=== PATIENT | male | born 1995 | race Caucasian/White ===

== ENCOUNTER 2024-09-20 09:04 | Emergency (ER) | payer BC, SELFPAY ==
[2024-09-20 09:10] VITALS: BP 154/83
[2024-09-20 09:21] VITALS: BMI 29.3
[2024-09-20 09:22] VITALS: BP 157/100
--- NOTE | 2024-09-20 09:36 | ED.GENMED ---
History of Present Illness
General
Chief Complaint: Chest Problem
Source: patient
Exam Limitations: none
Time Seen by Provider: 09/20/24 09:35
Nursing documentation reviewed up to this point in time: agreed with
History of Present Illness
History of Present Illness:
28-year-old male presents to the emergency department due to left shoulder and left chest pain. He woke up with this on Wednesday. He took gabapentin from his brother, which did help. He denies any shortness of breath or fever.
Past History
Past History
ED Past Medical History: None
ED Past Surgical History: Other (Lesion removed from head)
Social History
Tobacco: Non-smoker
Alcohol: None
Drug: None
Living: with family
Employment: Employed
Review of Systems
Review of Systems
Allergies reviewed?: Yes
All Other Systems: Not applicable
Constitutional: Reports no symptoms
EENT: Reports no symptoms
Respiratory: Reports no symptoms
Cardiac: Reports chest pain
ABD/GI: Reports no symptoms
: Reports no symptoms
Musculoskeletal: Reports muscle pain
Skin: Reports no symptoms
Neurological: Reports no symptoms
Endocrine: Reports no symptoms
Hematologic/Lymphatic: Reports no symptoms
Psychiatric: Reports no symptoms
Phy Exam
Physical Exam
Physical Exam:
Physical Exam
General: no apparent distress, not acutely ill
Neck: supple. no meningeal signs. normal posterior pharynx
Heart: s1/s2 regular rate and rhythm, no murmur. equal radial
pulses.
HEENT: Pupils equal round reactive to light, EOMI
Lungs: no acute respiratory distress. clear bilaterally, Left-sided chest wall tenderness, left upper chest
Abdomen: normal bowel sounds. not tender. no CVAT
Neuro: alert and oriented. no focal neurological deficits cranial nerves II through XII intact
Skin: no rash
Psychiatric: well kept. interactive and cooperative
Extremities: no edema. no calf tenderness. negative homans. good distal pulses
Course
Orders/Labs/Results
Orders:
Orders
09/20/24 09:12
Electrocardiogram (*1) Urgent
Reason for Study: Chest Pain
EKG- Treatment ONCE
09/20/24 09:54
Shoulder, Left 2 View CR [CR Shoulder - Left Min 2 View*] Urgent
Comment:
Reason For Exam: left shoulder pain with range of motion
Vital Signs
Initial and Last Documented VS:
Initial Vital Signs
Temp Pulse Resp BP Pulse Ox
98.3 F 60 16 154/83 98
09/20/24 09:10 09/20/24 09:10 09/20/24 09:10 09/20/24 09:10 09/20/24 09:10
Last Documented Vital Signs
Temp Pulse Resp BP Pulse Ox
98.3 F 51 20 141/78 97
09/20/24 09:10 09/20/24 12:20 09/20/24 12:20 09/20/24 12:18 09/20/24 12:18
MDM/Problems Addressed
Differential Diagnosis Includes:
ACS, pneumonia, shoulder fracture, rotator cuff tear
MDM/Problems Addressed:
28-year-old male with left shoulder strain, do not suspect ACS, PE, fracture or rotator cuff tear. Stable for discharge.
*Radiology
Radiology exam reviewed: radiology read reviewed (Left shoulder x-ray no acute findings, Except sclerotic bony island)
*Pulse Oximetry
SaO2: 98
Oxygen Mode of Delivery: Room air
Patient hypoxic: no
*EKG
Interpreted by ED Provider?: Yes
EKG Intrepretation Date: 09/20/24
EKG Intrepretation Time: 09:13
Interpretation: abnormal
Comparison EKG: no comparison EKG present
Heart Rate: 58
Rate: bradycardiac
Rhythm: sinus
[place]: normal axis
Interval: normal interval
QRS Pattern: normal QRS
Ischemia: no ischemia
*Senior Quality Control Inspector Interpretation
Rate: Senior Quality Control Inspector- N/A
*Critical Care Note
Total Time (30-74mins, 75-104mins- exclusive of procedures): Not Applicable
Data Reviewed
Further Testing Considered But Not Given:
CT chest not indicated
Patient Management
Discussion with other providers: [employer] (d/w orthopedics )
ED Attending Note
-
Portions of this chart may have been created with voice recognition software.� Occasional wrong word or��sound alike� substitutions may have occurred due to the inherent limitations of voice recognition software.
Discharge Plan
Departure
Patient Disposition: Home (Routine Discharge)
Date of Disposition: 09/20/24
Time of Disposition: 12:30
Patient with high blood pressure during this ER visit?: Yes
Condition: Good
Discharge Problem:
Left shoulder strain
Instructions: Shoulder pain - ED discharge instructions
Prescriptions:
New
gabapentin 100 mg capsule
100 mg PO TID PRN (Reason: pain) Qty: 20 0RF
Referrals:
shoulder [Other]
NONE,* [Family Provider, Internal Medicine]
Yamil Glaser MD [Active, Orthopedics] - Call in 1-3 days for appt
Interventions
Interventions:
*Risk Screen - Suicide Last Done: 09/20/24 09:10
*General Assessment Last Done: 09/20/24 09:23
*Neglect/Abuse Screening Last Done: 09/20/24 09:10
*ED- Fall Risk Assessment Last Done: 09/20/24 09:22
*ED COVID-19 Vaccine History Last Done: 09/20/24 09:22
*Nursing Disposition Last Done: 09/20/24 12:53
ED- Cardiac Assessment Last Done: 09/20/24 09:24
ED- Pulmonary Assessment Last Done: 09/20/24 09:28
Discharge Date and Time
Discharge Date/Time: 09/20/24 12:54
Print Language: LEBANESE
[2024-09-20 10:00] VITALS: BP 141/99
[2024-09-20 12:18] VITALS: BP 141/78
== END 2024-09-20 12:54 | disposition home or self-care (01) ==
LOC: EMR 09:04
PROVIDERS: EMERGENCY PHYSICIAN Emergency Medicine
DX: S46.912A Strain of unspecified muscle, fascia and tendon at shoulder and upper arm level, left arm, initial encounter (principal); R07.89 Other chest pain; M54.2 Cervicalgia; M79.10 Myalgia, unspecified site; M54.9 Dorsalgia, unspecified; X58.XXXA Exposure to other specified factors, initial encounter; R03.0 Elevated blood-pressure reading, without diagnosis of hypertension; Z88.1 Allergy status to other antibiotic agents
CPT/HCPCS: 99283; 73030; 93005